=== PATIENT | male | born 1985 | race Caucasian/White ===

== ENCOUNTER 2018-04-04 13:00 | Inpatient (IN) | payer MEDICAID ==
[~2018-04-04] VITALS: Ht 170.2 cm; Wt 162.5 kg
[~2018-04-04 13:00] MED LIST: BUPR-93 PO; CLON-570 PO
[2018-04-04] MEDS ORDERED: ZOLPIDEM TARTRATE 10 MG TABLET PO PRN (14:00)
[2018-04-04] MEDS ORDERED: HALOPERIDOL 5 MG TABLET PO PRN (14:00)
[2018-04-04 14:20] VITALS: BP 119/71
[2018-04-04] MEDS ORDERED: PNEUMOCOCCAL VACCINE POLYVALENT 0.5 ML VIAL [PPSV23] IM ONE (17:00)
[2018-04-04 17:18] VITALS: BP 138/86
[2018-04-04] MEDS: LORazepam 2 MG TABLET PO PRN (17:36)
[2018-04-04] MEDS: MIRTAZAPINE 15 MG TABLET PO SCH (20:32)
[2018-04-05 01:45] VITALS: BP 121/79
[2018-04-05 08:00] VITALS: BP 125/86
[2018-04-05] MEDS: ARIPiprazole 10 MG TABLET PO SCH (08:53)
[2018-04-05 08:54] LABS: EOSINOPHILS % (AUTO) 2.8 % (1.0-6.0); HEMATOCRIT 41.1 % (41-53); HEMOGLOBIN 13.9 g/dL (13.5-17.5); LYMPHOCYTES # (AUTO) 3.5 K/uL (1.0-4.8); LYMPHOCYTES % (AUTO) 36.8 % (22.0-44.0); MEAN CORPUSCULAR HEMOGLOBIN 29.8 pg (26.0-34.0); MEAN CORPUSCULAR HGB CONC 33.8 G/dL (31.0-37.0); MEAN CORPUSCULAR VOLUME 88 fL (80-100); MONOCYTES # (AUTO) 0.8 K/uL (0.1-1.0); MONOCYTES % (AUTO) 8.6 % (2.0-9.0); NEUTROPHILS # (AUTO) 4.9 K/uL (1.8-7.7); NEUTROPHILS % (AUTO) 50.8 % (40.0-70.0); PLATELET COUNT (AUTO) 250 K/uL (150-450); RED BLOOD CELL COUNT(AUTO) 4.66 MIL/uL (4.50-5.90); RED CELL DISTRIBUTION WIDTH 12.3 % (11.5-14.5)
[2018-04-05 09:31] LABS: ALANINE AMINOTRANSFERASE 35 U/L (12-78); ALBUMIN 3.1 g/dL (3.4-5.0); ALKALINE PHOSPHATASE 62 U/L (46-116); ANION GAP 5 mmol/L (8-16); ASPARTATE AMINOTRANSFERASE 18 U/L (15-37); BILIRUBIN,TOTAL 0.4 mg/dL (0.1-1.0); CALCIUM, TOTAL 8.5 mg/dL (8.8-10.5); CARBON DIOXIDE 32 mmol/L (22-29); CHLORIDE 104 mmol/L (98-107); CHOL/HDL RATIO 4.4 (4.2-7.3); CHOLESTEROL 137 mg/dL (131-200); CREATININE 0.94 mg/dL (0.60-1.30); GLOMERULAR FILTR. RATE CALC > 60 mL/min (>60); GLUCOSE,RANDOM 82 mg/dL (70-110); HDL CHOLESTEROL 31 mg/dL (40-60); LDL CHOL (CALC.) 88 mg/dL (0-130); POTASSIUM 3.7 mmol/L (3.5-5.1); SODIUM SERUM 141 mmol/L (136-145); THYROID STIMULATING HORMONE 1.84 uIU/mL (0.36-3.74); TRIGLYCERIDES 92 mg/dL (15-150); UREA NITROGEN, BLOOD 14 mg/dL (7-18)
[2018-04-05] MEDS: LORazepam 2 MG TABLET PO PRN ×2 (13:01→17:42)
[2018-04-05 16:22] VITALS: BP 119/86
[2018-04-05] MEDS: MIRTAZAPINE 15 MG TABLET PO SCH (20:36)
[2018-04-06 04:51] VITALS: BP 132/98
[2018-04-06 08:52] VITALS: BP 120/72
[2018-04-06] MEDS: ARIPiprazole 10 MG TABLET PO SCH (09:43)
[2018-04-06 16:41] VITALS: BP 129/84
[2018-04-06] MEDS ORDERED: MIRTAZAPINE 15 MG TABLET PO SCH (21:00)
[2018-04-07 03:09] VITALS: BP 138/79
[2018-04-07] MEDS: LORazepam 2 MG TABLET PO PRN (03:10)
[2018-04-07] MEDS ORDERED: ARIPiprazole 10 MG TABLET PO SCH (09:00)
[2018-04-07 09:12] VITALS: BP 131/85
[2018-04-07] MEDS ORDERED: ARIP15TA2 PO (10:08)
[2018-04-07] MEDS ORDERED: MIRT30 PO (10:08)
== END 2018-04-07 12:45 | disposition home or self-care (01) | DRG 751 ==
LOC: B2S 13:00
PROVIDERS: ADMIT Psychiatry & Neurology Psychiatry; ATTEND Psychiatry & Neurology Psychiatry
DX: F33.3 Major depressive disorder, recurrent, severe with psychotic symptoms (principal); Z68.43 Body mass index [BMI] 50.0-59.9, adult; I10 Essential (primary) hypertension; F29 Unspecified psychosis not due to a substance or known physiological condition; F17.210 Nicotine dependence, cigarettes, uncomplicated; F41.9 Anxiety disorder, unspecified; E66.9 Obesity, unspecified; Z91.19 Patient's noncompliance with other medical treatment and regimen; Z28.21 Immunization not carried out because of patient refusal
CPT/HCPCS: 84439; 84443